=== PATIENT | female | born 1955 | race Caucasian/White ===

== ENCOUNTER 2016-12-13 16:37 | Outpatient (CLI) | payer OTHER | END 2016-12-13 16:38 | disposition short-term general hospital (02) | LOC: EMS 16:37 | PROVIDERS: ATTEND Surgery | DX: R07.9 Chest pain, unspecified (principal); R06.02 Shortness of breath | CPT/HCPCS: A0425; A0427 ==

== ENCOUNTER 2017-03-08 08:43 | Outpatient (CLI) | payer OTHER ==
[2017-03-08 18:07] LABS: CREATININE 0.7 mg/dL (0.4-1.0)
== END 2017-03-08 08:44 | disposition home or self-care (01) ==
LOC: LAB.F 08:43
PROVIDERS: ATTEND Physician Assistant Medical
DX: B35.1 Tinea unguium (principal); Z79.899 Other long term (current) drug therapy
CPT/HCPCS: 36415; 82565; 84450; 84460

== ENCOUNTER 2017-04-15 15:25 | Outpatient (CLI) | payer OTHER ==
[2017-04-15 18:47] LABS: CREATININE 0.8 mg/dL (0.4-1.0)
== END 2017-04-15 15:26 | disposition home or self-care (01) ==
LOC: LAB.F 15:25
PROVIDERS: ATTEND Physician Assistant Medical
DX: B35.1 Tinea unguium (principal); Z79.899 Other long term (current) drug therapy
CPT/HCPCS: 36415; 82565; 84450; 84460

== ENCOUNTER 2018-06-23 15:19 | Outpatient (CLI) | payer OTHER | END 2018-06-23 23:59 | disposition home or self-care (01) | LOC: LAB.R 15:19 | PROVIDERS: ATTEND Obstetrics & Gynecology | DX: Z12.11 Encounter for screening for malignant neoplasm of colon (principal) | CPT/HCPCS: 82274 ==

== ENCOUNTER 2018-07-28 13:50 | Outpatient (CLI) | payer MEDICARE, OTHER ==
--- NOTE | 2018-07-29 08:54 | Mammography Report ---
Reason: SCREENING FOR BREAST CANCER Procedure Date: 07/28/2018 Accession Number: [id number] / [id number] Procedure: ARPAN - Screening Mammo w/Chidi CPT Code: FULL RESULT: EXAM: Screening Mammo w/Chidi DATE: 07/28/2018 2:36 PM CLINICAL HISTORY: Screening encounter. No reported risk factors. TECHNIQUE: (B) - Bilateral CC, laterally exaggerated CC, MLO views were obtained. COMPARISON: 08/19/2014 through 06/09/2010. PARENCHYMAL PATTERN: (A) - The breast(s) demonstrate(s) scattered fibroglandular densities. FINDINGS: Identified on the right cc view and confirmed on the right cc 3-D image 22 is a increasing focal asymmetry, possibly identified on the right MLO view approximately 4.8 cm deep to the nipple, 3-D image 22 which requires additional spot views and potentially ultrasound for clarification. There are no suspicious masses, calcifications, or areas of distortion in the left breast. IMPRESSION: Incomplete examination. BI-RADS category 0. RECOMMENDATION: (ADDMU) - Additional views using both Mammography and Ultrasound recommended. BI-RADS CATEGORY: (0) - Incomplete Examination - need additional evaluation. STANDARD QUALIFYING STATEMENTS: 1. This examination was not reviewed with the aid of Computer-Aided Detection (CAD). 2. A negative or benign imaging report should not preclude biopsy if clinically suspicious findings are present. 3. Dense breasts may obscure an underlying neoplasm. 4. This examination was reviewed with the aid of 3D breast imaging (tomosynthesis).
== END 2018-07-28 13:51 | disposition home or self-care (01) ==
LOC: DI 13:50
PROVIDERS: ATTEND Obstetrics & Gynecology
DX: Z12.31 Encounter for screening mammogram for malignant neoplasm of breast (principal); R92.8 Other abnormal and inconclusive findings on diagnostic imaging of breast
CPT/HCPCS: 77063; 77067

== ENCOUNTER 2018-08-08 12:25 | Outpatient (CLI) | payer MEDICARE, OTHER ==
--- NOTE | 2018-08-08 14:19 | Mammography Report ---
Reason: ABNORMAL MAMMOGRAM Procedure Date: 08/08/2018 Accession Number: [id number] / [id number] Procedure: ARPAN - Diag Special Views Dig RT CPT Code: FULL RESULT: EXAM: Diag Special Views Dig RT; targeted right breast ultrasound. DATE: 08/08/2018 1:12 PM CLINICAL HISTORY: Patient was called back for evaluation of right focal breast asymmetry TECHNIQUE: (B) - Bilateral CC and MLO views were obtained. This is followed by targeted right breast ultrasound. COMPARISON: 07/28/2018 PARENCHYMAL PATTERN: (A) - The breasts demonstrate scattered fibroglandular densities bilaterally. FINDINGS: Compression spot views disclose focal breast asymmetry in the lateral hemisphere right breast. On 3-D mammography, there are 2 sharply marginated oval masses seen best on slice 18 of right mediolateral tomography. On targeted ultrasound of these 2 lesions are confirmed to be sonographically benign cysts in the following locations: 9:00 position nipple +2 cm measuring 13 x 5 x 14 mm diameter, and 8:00 position nipple +3 cm measuring 16 x 7 x 18 mm diameter. No further workup required. IMPRESSION: Benign findings. BI-RADS category 2. RECOMMENDATION: (ANNUAL) - Recommend routine annual screening mammography. BI-RADS CATEGORY: (2) - Benign Findings. STANDARD QUALIFYING STATEMENTS: 1. This examination was not reviewed with the aid of Computer-Aided Detection (CAD). 2. A negative or benign imaging report should not preclude biopsy if clinically suspicious findings are present. 3. Dense breasts may obscure an underlying neoplasm. 4. This examination was reviewed with the aid of 3D breast imaging (tomosynthesis).
== END 2018-08-08 12:26 | disposition home or self-care (01) ==
LOC: DI 12:25
PROVIDERS: ATTEND Obstetrics & Gynecology
DX: N60.11 Diffuse cystic mastopathy of right breast (principal)
CPT/HCPCS: 76642; 77065; G0279

== ENCOUNTER 2019-08-05 16:38 | Outpatient (CLI) | payer MEDICARE, OTHER ==
--- NOTE | 2019-08-05 17:43 | Ultrasound Report ---
Reason: PX IN R LEG Procedure Date: 08/05/2019 Accession Number: [id number] / [id number] Procedure: US - Ext Limited Non Vascular CPT Code: Final Report FULL RESULT: PROCEDURE: Ext Limited Non Vascular INDICATIONS: PX IN R LEG TECHNIQUE: Real-time scanning was performed of the right lateral calf area, with image documentation and scanning of the left lower extremity in the same area for comparison. COMPARISON: No prior comparison.. FINDINGS: No area of hematoma or abscess formation is seen. No foreign body found. Mild edema in the fatty soft tissues incidentally noted. IMPRESSION: No lesion found, no suspicion for abscess formation or hematoma. The patient reported a recent fall with worsening of symptoms in the area of current clinical concern, with scanning directed by the patient to the specific areas of abnormality in her evaluation. Reviewed by: Shay Paredes MD on 08/05/2019 5:41 PM PDT Approved by: Shay Paredes MD on 08/05/2019 5:41 PM PDT Station ID: [id number]
== END 2019-08-05 16:39 | disposition home or self-care (01) ==
LOC: DI 16:38
PROVIDERS: ATTEND Naturopath
DX: M79.661 Pain in right lower leg (principal); R22.41 Localized swelling, mass and lump, right lower limb
CPT/HCPCS: 76882

== ENCOUNTER 2022-01-19 06:24 | Day surgery (SDC) | payer MEDICARE, OTHER ==
[2022-01-19] MEDS ORDERED: LACTATED RINGERS 1,000 ML IV ONE ×2 (07:03→08:37)
[2022-01-19] MEDS ORDERED: ONDANSETRON 4 MG/2 ML VIAL ONE (07:10)
[2022-01-19] MEDS ORDERED: PROPOFOL 500 MG/50 ML 500 MG/50 ML VIAL ONE (07:11)
--- NOTE | 2022-01-19 07:40 | ANESTHESIA ---
Pre-Anesthesia VS, & Labs - Diagnosis pos cologuard - Procedure colonoscopy Vital Signs: Temp Pulse Resp BP Pulse Ox O2 Flow Rate 36.4 C L 78 16 165/83 H 98 01/19/22 06:38 01/19/22 06:38 01/19/22 06:38 01/19/22 06:38 01/19/22 06:38 Height: 6 ft Weight (kg): 78.3 kg Body Mass Index: 23.3 BMI Classification: Normal - NPO >8 hours - Is Patient ?: No - Lab Results Current Lab Results: Laboratory Tests 01/19/22 07:02: POC Whole Bld Glucose 102 H Home Medications and Allergies Home Medications: Ambulatory Orders FLUoxetine [PROzac] 40 mg PO DAILY 01/17/22 Cholecalciferol (Vitamin D3) [D3 Liquid] 2,000 mg PO DAILY 11/15/21 Levothyroxine Sodium [Levothyroxine] 75 mcg PO DAILY 11/15/21 Lisinopril [Zestril] 10 mg PO DAILY 11/15/21 Propranolol [Inderal] 10 mg PO BID 11/15/21 Vitamin E 268 mg PO DAILY 11/15/21 metFORMIN [Glucophage] 1,000 mg PO BIDWM 11/15/21 FLUoxetine [PROzac] 40 mg PO DAILY 01/17/22 Allergies/Adverse Reactions: Allergies Allergy/AdvReac Type Severity Reaction Status Date / Time No Known Drug Allergies Allergy Verified 01/17/22 13:30 Anes History & Medical History - Anesthetic History Anesthesia Complications: reports: No previous complications Family history of Anesthesia Complications: Denies Family history of Malignant Hyperthermia: Denies - Medical History Cardiovascular: reports: Hypertension Pulmonary: reports: None Gastrointestinal: reports: None Urinary: reports: Incontinence Musculoskeletal: reports: None Endocrine/Autoimmune: reports: Type 2 diabetes, HyPOthyroidism Skin: reports: Psoriasis - Surgical History Orthopedic: reports: Knee replacement Exam General: Alert, Oriented x3, Cooperative Dental: WNL Mouth Openin Fingerbreadth Neck Mobility: Normal Mallampati classification: I Thyromental Distance: 4-6 cm Respiratory: Lungs clear Cardiovascular: Regular rate Plan Anesthesia Type: Total IV Consent for Procedure(s) Verified and Reviewed: Yes Code Status: Attempt Resuscitation ASA classification: 2-Mild systemic disease Is this case an emergency?: No
[2022-01-19] MEDS ORDERED: PROPOFOL 200 MG/20 ML VIAL IVP ONE ×2 (08:09→08:24)
[2022-01-19 09:28] VITALS: BP 165/87
--- NOTE | 2022-01-19 11:05 | ANESTHESIA POST OP EVALUATION ---
Anesthesia Post Eval - Post Anesthesia Eval Vitals: Last Vital Signs Temp 36.4 C L 01/19/22 09:15 Pulse 64 01/19/22 09:15 Resp 16 01/19/22 09:15 BP 165/87 H 01/19/22 09:15 Pulse Ox 100 01/19/22 09:15 O2 Flow Rate CV Function Including HR & BP: Stable Pain Control: Satisfactory Nausea & Vomiting: Negative Mental Status: Baseline Respiratory Status: Airway Patent Hydration Status: Satisfactory Anesthesia Complications: None
== END 2022-01-19 06:25 | disposition home or self-care (01) ==
LOC: SDS 06:24
PROVIDERS: ATTEND Surgery
DX: R19.5 Other fecal abnormalities (principal); K57.30 Diverticulosis of large intestine without perforation or abscess without bleeding; E11.9 Type 2 diabetes mellitus without complications; I10 Essential (primary) hypertension; Z79.84 Long term (current) use of oral hypoglycemic drugs
CPT/HCPCS: 45378; J7120

== ENCOUNTER 2022-03-22 06:16 | Day surgery (SDC) | payer MEDICARE, OTHER ==
[2022-03-22] MEDS ORDERED: LACTATED RINGERS 1,000 ML IV ONE (06:35)
--- NOTE | 2022-03-22 06:54 | ANESTHESIA ---
Pre-Anesthesia VS, & Labs - Diagnosis screening - Procedure colonoscopy Vital Signs: Temp Pulse Resp BP Pulse Ox O2 Flow Rate 36 C L 90 14 164/87 H 98 03/22/22 06:27 03/22/22 06:27 03/22/22 06:27 03/22/22 06:27 03/22/22 06:27 Height: 6 ft Weight (kg): 76.6 kg Body Mass Index: 22.8 BMI Classification: Normal - NPO >8 hours - Is Patient ?: No - Lab Results Lab results reviewed: Yes Home Medications and Allergies Cholecalciferol (Vitamin D3) [D3 Liquid] 2,000 mg PO DAILY 11/15/21 Levothyroxine Sodium [Levothyroxine] 75 mcg PO DAILY 11/15/21 Lisinopril [Zestril] 10 mg PO DAILY 11/15/21 Propranolol [Inderal] 10 mg PO BID 11/15/21 Vitamin E 268 mg PO DAILY 11/15/21 metFORMIN [Glucophage] 1,000 mg PO BIDWM 11/15/21 FLUoxetine [PROzac] 40 mg PO DAILY 01/17/22 Allergies/Adverse Reactions: Allergies Allergy/AdvReac Type Severity Reaction Status Date / Time wheat Allergy Rash Verified 01/19/22 08:48 Anes History & Medical History - Medical History Cardiovascular: reports: Hypertension Urinary: Endocrine/Autoimmune: reports: Type 2 diabetes, HyPOthyroidism - Surgical History General: reports: Colonoscopy Orthopedic: reports: Knee replacement Exam General: Alert, Oriented x3, Cooperative Dental: WNL Mouth Openin Fingerbreadth Neck Mobility: Normal Mallampati classification: I Thyromental Distance: 4-6 cm Respiratory: Lungs clear, Normal breath sounds, No respiratory distress Cardiovascular: Regular rate Plan Anesthesia Type: Total IV Consent for Procedure(s) Verified and Reviewed: Yes Code Status: Attempt Resuscitation ASA classification: 2-Mild systemic disease Is this case an emergency?: No
[2022-03-22] MEDS ORDERED: MIDAZOLAM 2 MG/2 ML VIAL ONE (07:03)
[2022-03-22] MEDS ORDERED: PROPOFOL 500 MG/50 ML 500 MG/50 ML VIAL ONE (07:04)
--- NOTE | 2022-03-22 07:31 | HISTORY & PHYSICAL EXAMINATION ---
Chief Complaint - Chief Complaint Chief Complaint: positive cologuard History of Present Illness - History Obtained From Records Reviewed: yes History obtained from: pt Exam Limitations: none - History of Present Illness HPI Comment/Other: here for colonoscopy. positive cologuard. no gi symptoms History - Past Medical History Cardiovascular: reports: Hypertension Endocrine/Autoimmune: reports: Type 2 diabetes, HyPOthyroidism : Psych: reports: Depression, Anxiety MRSA Hx?: No - Past Surgical History General: reports: Colonoscopy Ortho: reports: Knee replacement Meds/Allgy - Home Medications Home Medications: Ambulatory Orders Medication Instructions Recorded Confirmed Cholecalciferol (Vitamin D3) [D3 2,000 mg PO DAILY 11/15/21 03/21/22 Liquid] Levothyroxine Sodium 75 mcg PO DAILY 11/15/21 03/21/22 [Levothyroxine] Lisinopril [Zestril] 10 mg PO DAILY 11/15/21 03/21/22 Propranolol [Inderal] 10 mg PO BID 11/15/21 03/21/22 Vitamin E 268 mg PO DAILY 11/15/21 03/21/22 metFORMIN [Glucophage] 1,000 mg PO BIDWM 11/15/21 03/21/22 FLUoxetine [PROzac] 40 mg PO DAILY 01/17/22 03/21/22 - Allergies Allergies/Adverse Reactions: Allergies Allergy/AdvReac Type Severity Reaction Status Date / Time wheat Allergy Rash Verified 01/19/22 08:48 Review of Systems - Other Findings Other Findings: 10 pt ros as above otherwise unremarkable Exam - Vital Signs Reviewed Vital Signs: Yes Vital Signs: Vital Signs x48h Temp Pulse Resp BP Pulse Ox 03/22/22 06:27 36 C L 90 14 164/87 H 98 - Physical Exam General Appearance: positive: No acute distress, Alert Eyes Bilateral: positive: PERRL, EOMI ENT: positive: No signs of dehydration Neck: positive: No JVD Respiratory: positive: No respiratory distress, Breath sounds nml Cardiovascular: positive: Regular rate & rhythm Abdomen: positive: Non-tender, No distention Neurologic/Psychiatric: positive: Oriented x3 Conclusion/Plan - Problem List (1) Abnormal stool test Conclusion/Plan: positive cologuard. plan colonoscopy. parq held and consent obtained - Lab Results Lab results reviewed: Yes
[2022-03-22] MEDS ORDERED: PROPOFOL 200 MG/20 ML VIAL IVP ONE ×2 (07:51→08:11)
[2022-03-22] MEDS ORDERED: LACTATED RINGERS 400 ML IV ONE (08:31)
[2022-03-22 08:56] VITALS: BP 138/66
--- NOTE | 2022-03-22 13:13 | ANESTHESIA POST OP EVALUATION ---
Anesthesia Post Eval - Post Anesthesia Eval Vitals: Last Vital Signs Temp 36.1 C L 03/22/22 08:44 Pulse 73 03/22/22 08:50 Resp 16 03/22/22 08:50 BP 138/66 H 03/22/22 08:50 Pulse Ox 99 03/22/22 08:50 O2 Flow Rate CV Function Including HR & BP: Stable Pain Control: Satisfactory Nausea & Vomiting: Negative Mental Status: Baseline Respiratory Status: Airway Patent Hydration Status: Satisfactory Anesthesia Complications: None
== END 2022-03-22 06:17 | disposition home or self-care (01) ==
LOC: SDS 06:16
PROVIDERS: ATTEND Surgery
DX: R19.5 Other fecal abnormalities (principal); K57.30 Diverticulosis of large intestine without perforation or abscess without bleeding; E11.9 Type 2 diabetes mellitus without complications
CPT/HCPCS: 45378; J7120

== ENCOUNTER 2023-02-27 13:48 | Outpatient (CLI) | payer MEDICARE, OTHER ==
--- NOTE | 2023-02-28 12:56 | Mammography Report ---
BILATERAL DIGITAL SCREENING MAMMOGRAM 3D/2D: 02/27/2023 CLINICAL: Routine screening. Comparison is made to exams dated: 10/19/2021 mammogram, 08/08/2018 mammogram, 07/28/2018 mammogram, 07/27 mammogram, and 06/25/2013 mammogram - [facility]. There are scattered areas of fibroglandular density in both breasts (category b / 25%-50% glandular t issue). No significant masses, calcifications, or other findings are seen in either breast. There has been no significant interval change. IMPRESSION: NEGATIVE There is no mammographic evidence of malignancy. A 1 year screening mammogram is recommended. Based on the Tyrer Cuzick model (a risk assessment model) the patients lifetime risk is 6.0% and her 10 year risk is 3.5%. According to the ACR, ACS, and NCCN guidelines, an annual breast MRI exam vasyl g with mammogram is recommended if the patients lifetime risk is 20% or greater. This exam was interpreted at Station ID: [id number]. NOTE: For mammograms, a report in lay terms will be sent to the patient. Approximately 15% of breast malignancies will not be visualized mammographically. In the management of a palpable breast mass, a negative mammogram must not discourage biopsy of a clinically suspicious lesion. Electronically Signed By: Bhavani dominguez/hillary:02/27/2023 15:41:59 ACR BI-RADS Category 1: Negative 3341F PARENCHYMAL PATTERN: (A) - The breast(s) demonstrate(s) scattered fibroglandular densities. BI-RADS CATEGORY: (1) - 1 Mammogram [id number] 1 year screening LATERALITY: (B)
== END 2023-02-27 13:49 | disposition home or self-care (01) ==
LOC: DI 13:48
PROVIDERS: ATTEND Nurse Practitioner Family
DX: Z12.31 Encounter for screening mammogram for malignant neoplasm of breast (principal); R92.323 Mammographic fibroglandular density, bilateral breasts

== ENCOUNTER 2023-02-27 13:49 | Outpatient (CLI) | payer MEDICARE, OTHER ==
--- NOTE | 2023-02-27 16:30 | DEXA Report ---
PROCEDURE: Dexa Spine and/or Hip INDICATIONS: POST MENOPAUSAL TECHNIQUE: Dual energy x-ray absorptiometry (DXA) was performed on a shopa System. Regions measur ed are the AP Spine, femoral neck, and if needed forearm. COMPARISON: None FINDINGS: Lumbar Spine: Bone Mineral Density 1.276 g/cm/cm,T score 0.8. Left Femoral Neck: Bone Mineral Density 0.748 g/cm/cm, T score -2.1. Left Hip: Bone Mineral Density 0.766 g/cm/cm,T score -1.9. (T score greater or equal to -1.0: NORMAL) (T score from -1.1 to -2.4: OSTEOPENIA) (T score less than or equal to -2.5 to: OSTEOPOROSIS) Impression: By WHO criteria, this patient has moderate to severe osteopenia in the femoral neck and hip. Patients with diagnosis of osteoporosis or osteopenia should have regular bone mineral density assess ment. For those eligible for Medicare, routine testing is allowed once every 2 years. Testing frequ ency can be increased for patients who have rapidly progressing disease or for those who are receivin g medical therapy to restore bone mass. Reviewed by: Erin Can MD on 02/27/2023 4:28 PM PST Approved by: Erin Can MD on 02/27/2023 4:28 PM PST Station ID: [id number]
== END 2023-02-27 13:50 | disposition home or self-care (01) ==
LOC: DI 13:49
PROVIDERS: ATTEND Nurse Practitioner Family
DX: Z78.0 Asymptomatic menopausal state (principal); M85.89 Other specified disorders of bone density and structure, multiple sites